=== PATIENT | male | born 1935 | race Caucasian/White ===

== ENCOUNTER 2019-11-28 08:24 | Emergency (ER) | payer MEDICARE ==
[~2019-11-28] VITALS: Ht 182.9 cm; Wt 94.8 kg
[2019-11-28] MEDS ORDERED: PLAVIX 75 MG TA75 MG PO (08:26)
[2019-11-28] MEDS ORDERED: ARICEPT10 M1 PO (08:26)
[2019-11-28] MEDS ORDERED: PROSCAR 5MG TABL5 M1 PO (08:26)
[2019-11-28] MEDS ORDERED: ASA81BEC PO (08:26)
[2019-11-28] MEDS ORDERED: LORAZEPAM 0.50.5 MG PO (08:27)
[2019-11-28] MEDS ORDERED: LEVEMIR FL100 UNIT/2 SUBQ (08:27)
[2019-11-28] MEDS ORDERED: FISH OIL 1,0001 EAC9 PO (08:27)
[2019-11-28] MEDS ORDERED: SEROQUEL 25 MG25 MG PO (08:28)
[2019-11-28] MEDS ORDERED: MULTI-VITAMIN1 EAC5 PO (08:28)
[2019-11-28] MEDS ORDERED: HYTRIN 1 MG CAP1 MG PO (08:28)
[2019-11-28 08:43] LABS: ABSOLUTE BASOPHILS 0.1 thou/uL (0.0-0.2); ABSOLUTE EOSINOPHILS 0.3 thou/uL (0.0-0.7); ABSOLUTE LYMPHOCYTES 2.3 thou/uL (0.8-5.3); ABSOLUTE MONOCYTES 1.1 thou/uL (0.0-1.2); ABSOLUTE NEUTROPHILS 4.4 thou/uL (1.6-8.1); BASOPHILS 1.2 %; EOSINOPHILS 3.5 %; HEMATOCRIT 39.1 % (42.0-52.0); HEMOGLOBIN 13.6 gm/dL (14.0-18.0); LYMPHOCYTES 27.9 %; MCH 35.7 pg (26.0-34.0); MCHC 34.9 g/dL (28.0-37.0); MCV 102.4 fL (80.0-100.0); MONOCYTES 13.5 %; MPV 9.1 fl. (7.2-11.1); NUCLEATED RBCS 0 /100WBC; PLATELET COUNT* 240 thou/uL (150-400); POLYS 53.9 %; RBC 3.82 mil/uL (4.50-6.00); RDW-CV 14.9 % (10.5-14.5); WBC 8.1 thou/uL (4.0-11.0)
[2019-11-28 08:51] LABS: CALCIUM 8.8 mg/dL (8.5-10.1); CREATININE 1.2 mg/dL (0.6-1.3); POTASSIUM 4.2 mmol/L (3.5-5.1)
[2019-11-28 08:53] LABS: APTT 27.6 Seconds (25.0-31.3); PROTIME 10.8 Seconds (9.20-11.50)
[2019-11-28 08:57] LABS: ALBUMIN 3.6 g/dL (3.4-5.0); TOTAL PROTEIN 6.8 g/dL (6.4-8.2)
[2019-11-28 10:50] VITALS: BP 142/71
--- NOTE | 2019-11-28 13:22 | EKG ---
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1935 Requested By: Gaurang Duong Order Number: [id number] MD: Bethel Ramirez Measurements Intervals [place] Rate: 50 P: 44 TN: 191 QRS: -28 QRSD: 149 T: 19 QT: 529 QTc: 483 Interpretive Statements Sinus rhythm Atrial premature complex Right bundle branch block Probable LVH with secondary repol abnrm Borderline prolonged QT interval No previous ECG available for comparison Electronically Signed On 11-28-2019 13:22:04 CDT by Bethel Ramirez [email or web address] <ELECTRONICALLY SIGNED> By: Bethel Ramirez MD, [facility] 11/28/19 1322 0840 0840 Bethel Ramirez MD, [facility] /EPI
== END 2019-11-28 12:25 ==
LOC: M.ERS 08:24
PROVIDERS: Family Medicine
DX: S51.011A Laceration without foreign body of right elbow, initial encounter (principal); S00.81XA Abrasion of other part of head, initial encounter; I10 Essential (primary) hypertension; E11.9 Type 2 diabetes mellitus without complications; E78.5 Hyperlipidemia, unspecified; Z79.4 Long term (current) use of insulin; W18.39XA Other fall on same level, initial encounter; Y93.89 Activity, other specified; Y92.128 Other place in nursing home as the place of occurrence of the external cause; Y99.8 Other external cause status

== ENCOUNTER 2020-05-01 12:28 | Inpatient (IN) | payer MEDICARE ==
[~2020-05-01] VITALS: Ht 175.3 cm; Wt 113.4 kg
[~2020-05-01 12:28] MED LIST: ARICEPT10 M1 PO; ASA81BEC PO; FISH OIL 1,0001 EAC9 PO; HYTRIN 1 MG CAP1 MG PO; LEVEMIR FL100 UNIT/2 SUBQ; LORAZEPAM 0.50.5 MG PO; MULTI-VITAMIN1 EAC5 PO; PLAVIX 75 MG TA75 MG PO; PROSCAR 5MG TABL5 M1 PO; SEROQUEL 25 MG25 MG PO
[2020-05-01 12:31] VITALS: BP 151/69
[2020-05-01 12:51] LABS: ABSOLUTE BASOPHILS 0.1 thou/uL (0.0-0.2); ABSOLUTE EOSINOPHILS 0.1 thou/uL (0.0-0.7); ABSOLUTE LYMPHOCYTES 1.4 thou/uL (0.8-5.3); ABSOLUTE MONOCYTES 1.3 thou/uL (0.0-1.2); ABSOLUTE NEUTROPHILS 7.7 thou/uL (1.6-8.1); EOSINOPHILS 0.7 %; HEMATOCRIT 37.6 % (42.0-52.0); HEMOGLOBIN 12.4 gm/dL (14.0-18.0); LYMPHOCYTES 13.4 %; MCH 33.7 pg (26.0-34.0); MCV 101.9 fL (80.0-100.0); MONOCYTES 12.5 %; MPV 9.4 fl. (7.2-11.1); NUCLEATED RBCS 0 /100WBC; PLATELET COUNT* 255 thou/uL (150-400); POLYS 72.4 %; RBC 3.69 mil/uL (4.50-6.00); WBC 10.7 thou/uL (4.0-11.0)
[2020-05-01 12:58] LABS: CALCIUM 8.9 mg/dL (8.5-10.1); CREATININE 1.2 mg/dL (0.6-1.3); POTASSIUM 3.8 mmol/L (3.5-5.1)
[2020-05-01 13:03] LABS: ALBUMIN 3.4 g/dL (3.4-5.0); TOTAL BILIRUBIN 1.2 mg/dL (<0.1-1.0); TOTAL PROTEIN 6.6 g/dL (6.4-8.2)
[2020-05-01 13:44] LABS: URINE BILIRUBIN NEGATIVE (Negative); URINE BLOOD NEGATIVE (Negative); URINE CLARITY CLEAR; URINE COLOR YELLOW; URINE GLUCOSE-RANDOM NEGATIVE (Negative); URINE KETONES NEGATIVE (Negative); URINE LEUKOCYTES-REFLEX NEGATIVE (Negative); URINE NITRITE-REFLEX NEGATIVE (Negative); URINE PROTEIN TRACE (Negative); URINE SPECIFIC GRAVITY >= 1.030 (1.005-1.030); URINE UROBILINOGEN 0.2 E.U./dl (0.2-1.0)
--- NOTE | 2020-05-01 15:13 | EKG ---
[place] [address] ELECTROCARDIOGRAM REPORT Name: BETHEL WILLIAM Room: [place] [address] ADM IN ..#: [id number] Admission: 05/01/20 Attend Phys: Ghazal Maier, Discharge: Date of : 35 Date of Service: 05/01/20 1308 Report #: [id number] THIS REPORT FOR: //name// [facility] ED Test Date: 2020-05-01 Test Time: 13:08:54 Pat Name: BETHEL WILLIAM Department: Room: [facility] Gender: M Records Administrator: [place] : 1935 Requested By: Robb Mejias Order Number: [id number] MD: See Hollis Measurements Intervals [place] Rate: 68 P: -40 [place]: 183 QRS: -27 QRSD: 136 T: 118 QT: 422 QTc: 449 Interpretive Statements Sinus rhythm Right bundle branch block LVH with IVCD and secondary repol abnrm Compared to ECG 11/28/2019 08:40:58 Atrial premature complex(es) no longer present Electronically Signed On 05-01-2020 15:13:29 QUALITY ASSURANCE PROJECT MANAGER by See Hollis [email or web address] <ELECTRONICALLY SIGNED> By: See Hollis MD, FACC 05/01/20 1513 1308 1308 See Hollis MD, FAC /EPI
--- NOTE | 2020-05-01 17:02 | 2DMMODE ---
[place] [address] 2 D/M-MODE ECHOCARDIOGRAM Name: BETHEL WILLIAM Room: [facility] ADM IN .R.#: [id number] Admission: 05/01/20 Attend Phys: Ghazal Maier, Discharge: Date of : 35 Date of Service: 05/01/201701 Report #: [id number] THIS REPORT FOR: cc: Fuad Hill MD, Srinath MD [place],Jeremiah Kilpatrick MD [facility] ~ APPROVED REPORT Study performed: 05/01/2020 16:01:57 EXAM: Comprehensive 2D, Doppler, and color-flow Echocardiogram Patient Location: In-Patient Room #: ER BSA: 2.27 HR: 77 bpm BP: 151/69 mmHg Rhythm: NSR Other Information Study Quality: Good Indications Elevated Troponin 2D Dimensions IVSd: 11.82 (7-11mm) LVOT Diam: 18.69 (18-24mm) LVDd: 49.29 mm PWd: 11.06 (7-11mm) Ascending Ao: 33.58 (22-36mm) LVDs: 38.77 (25-40mm) Aortic Root: 32.70 mm Volumes Left Atrial Volume (Systole) LA ESV Index: 27.10 mL/m2 Aortic Valve AoV Peak Eladio.: 3.29 m/s AO Peak Gr.: 43.35 mmHg LVOT Max P.36 mmHg AO Mean Gr.: 25.24 mmHg LVOT Mean P.65 mmHg LVOT Max V: 0.92 m/s AO V2 VTI: 61.30 cm LVOT Mean V: 0.59 m/s [place] (VTI): 0.91 cm2 LVOT V1 VTI: 20.32 [place] [address] 2 D/M-MODE ECHOCARDIOGRAM Name: BETHEL WILLIAM Room: [address] IN M.R.#: [id number] Admission: 05/01/20 Attend Phys: Ghazal Maier, Discharge: Date of : 35 Date of Service: 05/01/20 1702 Report #: [id number] Mitral Valve E/A Ratio: 1.78 MV Decel. Time: 252.78 ms MV E Max Eladio.: 0.91 m/s MV PHT: 73.31 ms MVA (PHT): 3.00 cm2 TDI E/Lateral E': 9.10 E/Medial E': 11.38 Medial E' Eladio.: 0.08 m/s Lateral E' Eladio.: 0.10 m/s Pulmonary Valve PV Peak Eladio.: 1.11 m/s PV Peak Gr.: 4.95 mmHg Tricuspid Valve RAP Estimate: 5.00 mmHg TR Peak Gr.: 32.53 mmHg RVSP: 37.00 mmHg PA Pressure: 37.00 mmHg Left Ventricle The left ventricle is normal size. There is normal LV segmental wall motion. There is normal left ventricular wall thickness. Left ventricular systolic function is normal.e. LVEF is 50-55%. Grade II - pseudonormal filling dynamics. Right Ventricle The right ventricle is normal size. The right ventricular systolic function is normal. Atria Left atrium is mildly dilated. The right atrium size is normal. Aortic Valve The Aortic valve is sclerotic. Mild aortic regurgitation. Severe aortic stenosis. Mitral Valve The mitral valve is normal in structure. Mild mitral regurgitation. No evidence of mitral valve stenosis. Tricuspid Valve The tricuspid valve is normal in structure. Mild tricuspid regurgitation. [place] [address] 2 D/M-MODE ECHOCARDIOGRAM Name: BETHEL WILLIAM Room: [address] IN [facility]#: [id number] Admission: 05/01/20 Attend Phys: Ghazal Maier, Discharge: Date of : 35 Date of Service: 05/01/20 1702 Report #: [id number] Pulmonic Valve The pulmonary valve is normal in structure. Mild pulmonic regurgitation. Great Vessels The aortic root is normal in size. IVC is normal in size and collapses >50% with inspiration. Pericardium There is no pericardial effusion. <Conclusion> The left ventricle is normal size. There is normal left ventricular wall thickness. Left ventricular systolic function is normal.e. LVEF is 50-55%. Grade II - pseudonormal filling dynamics. Left atrium is mildly dilated. The Aortic valve is sclerotic. Mild aortic regurgitation. Severe aortic stenosis. Mild mitral regurgitation. Mild tricuspid regurgitation. Mild pulmonary hypertension. IVC is normal in size and collapses >50% with inspiration. <ELECTRONICALLY SIGNED> By: Jeremiah Mcbride MD, FACC 05/01/201701 01 01 Jeremiah Mcbride MD, FACC /INF
[2020-05-01 19:00] VITALS: BP 135/69
[2020-05-01 20:00] VITALS: BP 106/61
[2020-05-01 20:05] VITALS: BP 135/69
[2020-05-02] VITALS: BP 130/65
[2020-05-02 04:54] VITALS: BP 146/67
[2020-05-02 05:43] LABS: HEMATOCRIT 36.2 % (42.0-52.0); MCH 33.7 pg (26.0-34.0); MCHC 33.1 g/dL (28.0-37.0); MPV 10.2 fl. (7.2-11.1); RBC 3.55 mil/uL (4.50-6.00); RDW-CV 14.9 % (10.5-14.5); WBC 9.5 thou/uL (4.0-11.0)
[2020-05-02 06:11] LABS: CALCIUM 8.7 mg/dL (8.5-10.1); CREATININE 1.2 mg/dL (0.6-1.3); MAGNESIUM 2.3 mg/dL (1.8-2.4); POTASSIUM 4.1 mmol/L (3.5-5.1); TOTAL BILIRUBIN 0.9 mg/dL (<0.1-1.0); TOTAL PROTEIN 6.4 g/dL (6.4-8.2)
[2020-05-02 08:00] VITALS: BP 141/62
[2020-05-02] MEDS ORDERED: PREDNISONE 10 M10 M1 PO (09:14)
[2020-05-02] MEDS ORDERED: LORAZEPAM 0.50.5 MG PO (09:14)
--- NOTE | 2020-05-03 13:09 | CON ---
[address] [address] CONSULTATION Name: BETHEL WILLIAM Room: [address] IN M.R.#: [id number] Admission: 05/01/20 Attend Phys: Ghazal Maier MD Discharge: 05/02/20 Date of : 35 Report #: [id number] THIS REPORT FOR: cc: Fuad Hill MD, Srinath MD ~ See Hollis MD [facility] DATE OF SERVICE: 05/02/2020 CARDIOLOGY CONSULTATION HISTORY OF PRESENT ILLNESS: The patient is an 85-year-old white male who I was asked to see in the hospital today after he was noted to have an elevated troponin. The history is obtained from the current chart. He lives in a long-term care facility. He has become confused on top of his normal dementia. He was brought to the hospital after he tested positive for COVID-19. He was noted to have an elevated troponin. Cardiology consultation requested. At the current time, the patient is nonverbal. He is awake. PAST MEDICAL HISTORY: Apparently, he has had multiple falls and contusions. MEDICATIONS: At the long term include aspirin, Plavix, Aricept, Proscar, insulin, Seroquel, Hytrin. ALLERGIES: He has no known drug allergies. SOCIAL HISTORY: No history of smoking. REVIEW OF SYSTEMS: Cannot be obtained. PHYSICAL EXAMINATION: GENERAL: Revealed an elderly male, lying in bed. He was unresponsive. VITAL SIGNS: He had a blood pressure of 140/70, pulse 60. He was afebrile. HEENT: He was anicteric. Conjunctivae are pink. Mucous membranes appear dry. CHEST: Coarse breath sounds bilaterally. CARDIOVASCULAR: Regular rate and rhythm without murmur. ABDOMEN: Soft. EXTREMITIES: Had no edema. SKIN: Cool and dry. NEUROLOGIC: Nonfocal. He would not follow commands. DIAGNOSTIC DATA: ECG showed a sinus rhythm with an incomplete right bundle-branch block. His echocardiogram done yesterday showed ejection fraction of 55%, left atrial enlargement, aortic sclerosis. There was evidence of significant aortic stenosis with a peak gradient across the aortic valve of [address] [place] [address] CONSULTATION Name: BETHEL WILLIAM Room: [address] IN [facility]#: [id number] Admission: 05/01/20 Attend Phys: Ghazal Maier MD Discharge: 05/02/20 Date of : 35 Report #: [id number]. His chest x-ray showed normal heart size. There is evidence of previous sternotomy. Atelectasis was noted. He actually had a CT scan of the head done last November after a fall that showed chronic changes, no acute abnormality. LABORATORY DATA: Sodium 141, BUN 24, creatinine 1.2. His troponin mildly elevated at 0.13. White blood cell count 9.5, hemoglobin 12.0. IMPRESSION AND RECOMMENDATIONS: 1. Borderline troponin. No history of angina. No acute ECG changes. Normal left ventricular function by echocardiography. Recommend no further cardiac evaluation. I find no evidence of acute myocardial infarction. 2. COVID-19. 3. Severe aortic stenosis. The patient is not an operative candidate. 4. Severe dementia. 5. History of multiple falls. <ELECTRONICALLY SIGNED> By: See Hollis MD, FACC 05/03/20 1309 0859 [id number] Saturnino Hollis MD, FACC /nt
== END 2020-05-02 18:15 | DRG 177 ==
LOC: M.ERS 12:28 → M.ORTHSURG 13:29 → M.TBA-ER 13:29 → M.ORTHSURG 20:10
PROVIDERS: Emergency Medicine Emergency Medical Services; ADMIT Internal Medicine; ATTEND Internal Medicine
DX: U07.1 COVID-19 (principal); G93.41 Metabolic encephalopathy; F03.90 Unspecified dementia, unspecified severity, without behavioral disturbance, psychotic disturbance, mood disturbance, and anxiety; E11.9 Type 2 diabetes mellitus without complications; I10 Essential (primary) hypertension; E78.5 Hyperlipidemia, unspecified; I35.0 Nonrheumatic aortic (valve) stenosis; Z79.82 Long term (current) use of aspirin; Z79.899 Other long term (current) drug therapy

== ENCOUNTER 2020-05-04 21:45 | Inpatient (IN) | payer MEDICARE ==
[~2020-05-04] VITALS: Ht 180.3 cm; Wt 93.2 kg
[~2020-05-04 21:45] MED LIST changes: +PREDNISONE 10 M10 M1 PO
[2020-05-04 21:51] VITALS: BP 133/71
[2020-05-04] MEDS ORDERED: AZITHROMYCIN500 MG PO (21:53)
[2020-05-04] MEDS ORDERED: CLOPIDOGREL75 MG PO (21:53)
[2020-05-04] MEDS ORDERED: ARICEPT10 M1 PO (21:53)
[2020-05-04] MEDS ORDERED: PROSCAR 5MG TABL5 M1 PO (21:55)
[2020-05-04] MEDS ORDERED: VITAMIN C500 M1 PO (21:56)
[2020-05-04 22:22] LABS: HEMOGLOBIN 13.4 gm/dL (14.0-18.0); MCH 33.6 pg (26.0-34.0); MCHC 32.7 g/dL (28.0-37.0); MCV 102.6 fL (80.0-100.0); MPV 10.4 fl. (7.2-11.1); NUCLEATED RBCS 0 /100WBC; PLATELET COUNT* 217 thou/uL (150-400); RBC 3.99 mil/uL (4.50-6.00); RDW-CV 15.2 % (10.5-14.5); WBC 17.5 thou/uL (4.0-11.0)
[2020-05-04 22:30] LABS: BE -3.6 mmol/L (-2 to +3); PCO2 26.1 mmHg (35.0-45.0); PO2 66.6 mmHg (75.0-100.0); pH 7.469 (7.340-7.450)
[2020-05-04 22:32] LABS: CALCIUM 9.2 mg/dL (8.5-10.1); CREATININE 1.7 mg/dL (0.6-1.3); POTASSIUM 3.3 mmol/L (3.5-5.1)
[2020-05-04 22:36] LABS: ALBUMIN 2.8 g/dL (3.4-5.0); MAGNESIUM 2.7 mg/dL (1.8-2.4); TOTAL BILIRUBIN 1.6 mg/dL (<0.1-1.0); TOTAL PROTEIN 6.8 g/dL (6.4-8.2)
[2020-05-04 22:56] LABS: ABSOLUTE LYMPHOCYTES 0.9 thou/uL (0.8-5.3); ABSOLUTE MONOCYTES 0.9 thou/uL (0.0-1.2); ABSOLUTE NEUTROPHILS 15.8 thou/uL (1.6-8.1); ATYPICAL LYMPHS 1 %; PLATELET ESTIMATE ADEQUATE
[2020-05-04 22:57] LABS: TOXIC GRANULATION 1+
[2020-05-04 23:33] LABS: URINE BILIRUBIN NEGATIVE (Negative); URINE BLOOD 2+ (Negative); URINE COLOR DARK YELLOW; URINE GLUCOSE-RANDOM NEGATIVE (Negative); URINE KETONES 1+ (Negative); URINE LEUKOCYTES-REFLEX NEGATIVE (Negative); URINE NITRITE-REFLEX NEGATIVE (Negative); URINE PROTEIN 2+ (Negative); URINE SPECIFIC GRAVITY >= 1.030 (1.005-1.030); URINE UROBILINOGEN 0.2 E.U./dl (0.2-1.0)
[2020-05-04 23:34] LABS: URINE CLARITY SL HAZY
[2020-05-04 23:40] LABS: SQUAMOUS 0-3 Few /LPF (0-3); WBC CLUMPS Few (None Seen)
[2020-05-04 23:41] LABS: AMORPHOUS URATES Many /LPF (None Seen); BACTERIA-REFLEX >30 Many /HPF (None Seen); CELLULAR CASTS 0-3 Few /LPF (None Seen); COARSE GRANULAR CASTS 0-3 Few /LPF (None Seen); FINE GRANULAR CASTS 0-3 Few /LPF (None Seen); MUCUS >6 Heavy strn/LPF (None Seen)
[2020-05-05 02:19] VITALS: BP 118/59
[2020-05-05 05:42] VITALS: BP 113/63
--- NOTE | 2020-05-05 05:48 | NUR ---
ASSUMED CARE AT 0230. PT RESTING COMFORTABLY ON BIPAP. Q2 TURN, FLUIDS AT 100 NS. NORMAL SINUS RHYTHM ON MONITOR. REDNESS ON BOTTOM, PIC IN CHART. ALERT TO SELF, DEMENTIA, CONFUSION. PT FAMILY MEMBER CALLED TO LET ME KNOW HE TENDS TO WANDER AROUND AND GETS UP OFTEN. WILL ALERT DAY SHIFT STAFF.
[2020-05-05 07:45] VITALS: BP 137/70
--- NOTE | 2020-05-05 11:30 | NUR ---
PT.KNOWN FROM PREVIOUS RECENT ADMISSION. PT.LIVES IN THE MEMORY CARE UNIT AT THE [facility]. LEFT ON ROOM AIR TUESDAY WITH STABLE SATURATIONS. NOW ON BIPAP. FAMILY AWARE HE IS BACK IN THE HOSPITAL. NIECE CALLED AND SAID HE LIKES TO WANDER THE [place]ALLWAYS AT THE [facility]. NO USE OF DME,NORMALLY. DPOA IS LAILA GONZALEZ.
[2020-05-05 11:57] VITALS: BP 144/85
--- NOTE | 2020-05-05 15:12 | EKG ---
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 /EPI
[2020-05-05 15:40] LABS: CALCIUM 8.2 mg/dL (8.5-10.1); CREATININE 1.7 mg/dL (0.6-1.3); MAGNESIUM 2.4 mg/dL (1.8-2.4); POTASSIUM 3.5 mmol/L (3.5-5.1)
[2020-05-05 16:00] VITALS: BP 128/68
--- NOTE | 2020-05-05 19:06 | NUR ---
PT RESTING IN BED. CALL LIGHT IN REACH. FALL PRECAUTIONS IN PLACE. PT VISITED BY FATHER PEDRITO THIS AM. REA PATENT, YELLOW URINE VISIBLE IN COLLECTION BAG. PT NPO R/T BIPAP AND INTERMITTENT DIFFICULTY SWALLOWING.PT REMAINED ON BIPAP. IV TO LFA PATENT, CARDIZEM INFUSING ORDERED. IV TO L HAND PATENT, AMIODARONE RUNNING DIRECTED. HEARTRATE WITHIN PARAMETERS AT THIS TIME PT REPOSITIONED FOR SKIN INTEGRITY.
[2020-05-05 20:30] VITALS: BP 117/65
[2020-05-06] VITALS (7 sets, daily range): BP systolic 110–147; BP diastolic 53–86
--- NOTE | 2020-05-06 04:35 | NUR ---
PT SLEPT MOST OF SHIFT. ASSESSMENT DOCUMENTED. MEDS GIVEN PER E-MAR. IV'S PATENT. AMIODARONE AND CARDIZEM RUNNING. NEW IV STARTED. MEDS TAKEN CRUSHED IN APPLESAUCE. BIPAP WORN THIS SHIFT. FALL PRECAUTIONS IN PLACE. PT TOLERATING REPOSITIONS.
--- NOTE | 2020-05-06 07:10 | NUR ---
CHANGE OF SHIFT BEDSIDE REPORT GIVEN PATIENT SEEN AT BEDSIDE IN BED ASLEEP ASSUMED PATIENT CARE
[2020-05-06 13:53] LABS: ABSOLUTE BASOPHILS 0.1 thou/uL (0.0-0.2); ABSOLUTE LYMPHOCYTES 0.3 thou/uL (0.8-5.3); ABSOLUTE MONOCYTES 0.5 thou/uL (0.0-1.2); ABSOLUTE NEUTROPHILS 12.8 thou/uL (1.6-8.1); BASOPHILS 0.4 %; HEMATOCRIT 40.9 % (42.0-52.0); HEMOGLOBIN 13.2 gm/dL (14.0-18.0); LYMPHOCYTES 2.2 %; MCH 33.3 pg (26.0-34.0); MCHC 32.2 g/dL (28.0-37.0); MCV 103.3 fL (80.0-100.0); MONOCYTES 3.8 %; MPV 10.9 fl. (7.2-11.1); NUCLEATED RBCS 0 /100WBC; PLATELET COUNT* 209 thou/uL (150-400); POLYS 93.6 %; RBC 3.96 mil/uL (4.50-6.00); WBC 13.7 thou/uL (4.0-11.0)
[2020-05-06 14:17] LABS: ALBUMIN 2.5 g/dL (3.4-5.0); CALCIUM 8.9 mg/dL (8.5-10.1); CREATININE 2.1 mg/dL (0.6-1.3); POTASSIUM 3.6 mmol/L (3.5-5.1); TOTAL BILIRUBIN 1.2 mg/dL (<0.1-1.0); TOTAL PROTEIN 5.6 g/dL (6.4-8.2)
--- NOTE | 2020-05-06 16:00 | NUR ---
PT.ON BIPAP CONTINUOUSLY. ON SECOND DAY OF IVREMDESIVIR. AMIODARONE DISCONTINUED DUE TO RISE IN LIVER ENZYMES.
--- NOTE | 2020-05-06 16:08 | EKG ---
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 Management Engineer: BREN[place] : 1935 Requested By: Memo Esposito Order Number: [id number] Reading MD: Bethel Ramirez Measurements Intervals [place] Rate: 150 P: 210 [place]: 69 QRS: -34 QRSD: 126 T: 68 QT: 313 QTc: 495 Interpretive Statements Atrial fibrillation with a rapid ventricular response Right bundle branch block Baseline wander in lead(s) V3 Compared to ECG 05/04/2020 21:50:00 Atrial fibrillation persists with a more rapid rate Electronically Signed On 05-06-2020 16:08:40 DRAFTER ELECTRICAL by Bethel Ramirez [email or web address] <ELECTRONICALLY SIGNED> By: Bethel Ramirez MD, FAC 05/06/20 1608 1345 1345 Bethel Ramirez MD, FAC /EPI
[2020-05-07 04:02] VITALS: BP 146/75
--- NOTE | 2020-05-07 04:53 | NUR ---
PT SLEPT VERY LITTLE THIS SHIFT. ASSESSMENT DOCUMENTED. MEDS GIVEN PER E-JUN. IV'S PATENT. PT REPOSITIONED THROUGH SHIFT. REA IN PLACE. BIPAP WORN ALL NIGHT. ISOLATION MAINTAINED. FALL PRECAUTIONS IN PLACE.
[2020-05-07 05:19] LABS: ABSOLUTE LYMPHOCYTES 0.3 thou/uL (0.8-5.3); ABSOLUTE MONOCYTES 0.3 thou/uL (0.0-1.2); ABSOLUTE NEUTROPHILS 8.8 thou/uL (1.6-8.1); BASOPHILS 0.1 %; HEMATOCRIT 39.9 % (42.0-52.0); HEMOGLOBIN 13.1 gm/dL (14.0-18.0); LYMPHOCYTES 3.5 %; MCH 33.3 pg (26.0-34.0); MCHC 32.7 g/dL (28.0-37.0); MCV 101.9 fL (80.0-100.0); MONOCYTES 3.5 %; MPV 10.9 fl. (7.2-11.1); NUCLEATED RBCS 0 /100WBC; PLATELET COUNT* 202 thou/uL (150-400); POLYS 92.9 %; RBC 3.92 mil/uL (4.50-6.00); WBC 9.5 thou/uL (4.0-11.0)
[2020-05-07 05:33] LABS: ALBUMIN 2.2 g/dL (3.4-5.0); CALCIUM 8.5 mg/dL (8.5-10.1); CREATININE 2.3 mg/dL (0.6-1.3); MAGNESIUM 2.9 mg/dL (1.8-2.4); POTASSIUM 3.6 mmol/L (3.5-5.1)
[2020-05-07 08:50] VITALS: BP 127/78
[2020-05-07 08:53] LABS: BE -5.2 mmol/L (-2 to +3); PCO2 29.1 mmHg (35.0-45.0); PO2 68.1 mmHg (75.0-100.0); pH 7.404 (7.340-7.450)
[2020-05-07 10:30] LABS: CALCIUM 8.8 mg/dL (8.5-10.1); CREATININE 2.3 mg/dL (0.6-1.3); POTASSIUM 3.3 mmol/L (3.5-5.1)
[2020-05-07 12:11] VITALS: BP 104/63
[2020-05-07 15:13] LABS: CALCIUM 9.1 mg/dL (8.5-10.1); CREATININE 2.3 mg/dL (0.6-1.3)
--- NOTE | 2020-05-07 15:34 | EKG ---
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 Sander: : 1935 Requested By: Jaky Armenta Order Number: [id number] Juana MD: Bethel Ramirez Measurements Intervals [place] Rate: 89 P: [place]: QRS: -34 QRSD: 136 T: 61 QT: 443 QTc: 540 Interpretive Statements Atrial fibrillation Right bundle branch block Compared to ECG 05/05/2020 13:45:12 Ventricular response atrial fibrillation has slowed Electronically Signed On 05-07-2020 15:34:24 POWDER LOADER by Bethel Ramirez [email or web address] <ELECTRONICALLY SIGNED> By: Bethel Ramirez MD, [facility] 05/07/20 1534 1255 1255 Bethel Ramirez MD, [facility] /EPI
[2020-05-07 16:47] VITALS: BP 108/78
--- NOTE | 2020-05-07 16:52 | NUR ---
ASSUMED CARE OF PT AT 0730. PT ON BEDREST WITH FALL PRECAUTIONS IN PLACE AND CALL LIGHT IN REACH.REMAINS ON BIPAP AT 50% WITH O2 MAINTAINING IN THE LOW 90'S. WHEEZES NOTED IN R LUNG, CXR DONE AN RESULTS SHOWS SOME IMPROVEMENT IN R BASILAR INFILTRATE AND L LUNG STABLE. MRSA IS NEGATIVE. RENAL ULTRASOUND ORDERED AMD COMPLETED TODAY. COCCYX REDDENED AND MOISTURE BARRIER APPLED AFTER EACH EPISODE OF INCONTINENCE. MEDICAATIONS CRUSHED AND ADMINISTERED ORDERED.ASSESSMENT COMPLETED AND WILL CONTINUE CURRENT PLAN OF CARE.
--- NOTE | 2020-05-07 17:00 | NUR ---
PT.REMAINS ON CONT.BIPAP-FI02 OF 50%. NA AND CREAT.UP. BEING ADDRESSED BY DR. KLINE CONSULTED YESTERDAY. REMSESIVIR DC'D DUE TO HIGH CREAT. NURSING HAS UPDATED NIECE TODAY.
--- NOTE | 2020-05-07 17:03 | NUR ---
ADDENDUM TO PREVIOUS NOTE. THIS SUPERINTENDENT MAINTENANCE [employer] SPOKE WITH THE PT'S NIECE, NUVIA (AUTHORIZED CONTACT) AND UPDATED ON NEW ORDERS AND STATUS.
[2020-05-07 20:00] VITALS: BP 139/69
[2020-05-08] VITALS (7 sets, daily range): BP systolic 103–158; BP diastolic 59–88
[2020-05-08 05:42] LABS: HEMATOCRIT 40.7 % (42.0-52.0); HEMOGLOBIN 13.2 gm/dL (14.0-18.0); MCH 33.6 pg (26.0-34.0); MCHC 32.5 g/dL (28.0-37.0); MCV 103.3 fL (80.0-100.0); MPV 10.8 fl. (7.2-11.1); NUCLEATED RBCS 0 /100WBC; PLATELET COUNT* 206 thou/uL (150-400); RBC 3.94 mil/uL (4.50-6.00); RDW-CV 16.3 % (10.5-14.5); WBC 10.3 thou/uL (4.0-11.0)
[2020-05-08 06:00] LABS: ALBUMIN 2.2 g/dL (3.4-5.0); CALCIUM 9.7 mg/dL (8.5-10.1); CREATININE 2.1 mg/dL (0.6-1.3); POTASSIUM 3.1 mmol/L (3.5-5.1); TOTAL BILIRUBIN 0.6 mg/dL (<0.1-1.0); TOTAL PROTEIN 5.9 g/dL (6.4-8.2)
[2020-05-08 06:24] LABS: ABSOLUTE LYMPHOCYTES 0.5 thou/uL (0.8-5.3); ABSOLUTE MONOCYTES 0.1 thou/uL (0.0-1.2); ABSOLUTE NEUTROPHILS 9.7 thou/uL (1.6-8.1); ATYPICAL LYMPHS 2 %; PLATELET ESTIMATE ADEQUATE
--- NOTE | 2020-05-08 06:41 | NUR ---
PT SLEPT ON AND OFF THIS SHIFT. ASSESSMENT DOCUMENTED. MEDS GIVEN PER E-JUN. IV'S PATENT, FLUIDS INFUSING. NO APPARENT PAIN THIS SHIFT. PT PULLING AT BIPAP AND PULLING OFF LEADS THIS SHIFT. PT REMAINED ON BIPAP. ISOLATION MAINTAINED.
[2020-05-08 10:09] LABS: CREATININE 1.8 mg/dL (0.6-1.3)
[2020-05-08 10:12] LABS: POTASSIUM 2.9 mmol/L (3.5-5.1)
--- NOTE | 2020-05-08 19:45 | NUR ---
ORDERS RECEIVED FOR LASIX AND ALBUMIN PER DR ESCOBAR. AWAITING ALBUMIN FROM PHARMACY. REPORT GIVEN TO ONCOMING SHIFT AND WILL FOLLOW THROUGH WITH ORDER.
--- NOTE | 2020-05-08 19:47 | NUR ---
ASSUMED PT CARE AT 0730. ASSESSMENT COMPLETED, PT CONTINUES ON BIPAP AT 50% WHICH RT TITRATED TO 70% THIS AFTERENOON.PT CONTINUES TO BE FIDGETY AND REMOVE BIPAP, ATTEMPT TO REMOVE REA,AND IV'S. ATTEMPTING TO HIT STAFF AT TIMES. PT ENCOURAGED AND COMFORT MEASURES GIVEN TO PROMOTE A CALM ENVIRONMENT.CRITICAL POTASSIUM OF 2.9 NOTED TODAY, IV POTASSIUM GIVEN PER ELECTROLYTE PROTOCOL AND REDRAWS SCHEDULED FOR 1999. IV ATIVAN REQUIRED TO DECREASE RESTLESSNESS. FALL PRECAUTIONS IN PLACE, CALL LIGHT IN REACH. PT TURNED AND REPOSITIONED Q2H.MOISTURE BARRIER APPLIED AFTER EACH EPISODE OF INCONTINENCE. SPOKE WITH PT'S NIECE (GIANNI CHAVEZ TO UPDATE ON CURRENT STATUS AND PLAN OF CARE.
[2020-05-09] VITALS (23 sets, daily range): BP systolic 113–181; BP diastolic 56–121
--- NOTE | 2020-05-09 04:37 | NUR ---
PT ALERT TO SELF, Q2 TURN. PULLS AT BIPAP HOSES, AEROSPACE MEDICINE PHYSICIAN LEADS ETC. ATIVAN HELPFUL FOR ANXIETY. REA IN PLACE, MAX ASSIST. SOME REDNESS ON BOTTOM, BARRIER CREAM APPLIED, Q2 TURN. ACHS Q4. MONITORING LABS FOR K+ LEVELS THIS AM. RECEIVED MEDS SCHEDULED. DOES WELL WITH THEM CRUSHED IN THICKENED JUICE. MONITOR LABS AND O2. WILL CONTINUE TO MONITOR.
[2020-05-09 05:48] LABS: HEMATOCRIT 40.2 % (42.0-52.0); HEMOGLOBIN 12.9 gm/dL (14.0-18.0); MCH 32.8 pg (26.0-34.0); MCV 102.5 fL (80.0-100.0); RBC 3.92 mil/uL (4.50-6.00); RDW-CV 16.2 % (10.5-14.5); WBC 13.3 thou/uL (4.0-11.0)
[2020-05-09 06:39] LABS: ALBUMIN 2.3 g/dL (3.4-5.0); CALCIUM 9.3 mg/dL (8.5-10.1); CREATININE 1.7 mg/dL (0.6-1.3); MAGNESIUM 2.7 mg/dL (1.8-2.4); POTASSIUM 4.8 mmol/L (3.5-5.1); TOTAL BILIRUBIN 0.8 mg/dL (<0.1-1.0); TOTAL PROTEIN 5.9 g/dL (6.4-8.2)
[2020-05-09 15:10] LABS: CALCIUM 9.8 mg/dL (8.5-10.1); CREATININE 1.7 mg/dL (0.6-1.3); MAGNESIUM 2.8 mg/dL (1.8-2.4)
--- NOTE | 2020-05-09 15:58 | NUR ---
report called to nurse. family updated. pt transferred to icu.
[2020-05-10] VITALS (54 sets, daily range): BP systolic 94–190; BP diastolic 41–117
[2020-05-10 04:53] LABS: HEMATOCRIT 37.6 % (42.0-52.0); HEMOGLOBIN 12.4 gm/dL (14.0-18.0); MCH 33.4 pg (26.0-34.0); MCHC 32.9 g/dL (28.0-37.0); MCV 101.4 fL (80.0-100.0); MPV 11.1 fl. (7.2-11.1); RBC 3.71 mil/uL (4.50-6.00); RDW-CV 15.9 % (10.5-14.5); WBC 13.6 thou/uL (4.0-11.0)
[2020-05-10 05:10] LABS: ALBUMIN 2.1 g/dL (3.4-5.0); CALCIUM 8.7 mg/dL (8.5-10.1); CREATININE 1.4 mg/dL (0.6-1.3); MAGNESIUM 2.7 mg/dL (1.8-2.4); POTASSIUM 3.7 mmol/L (3.5-5.1); TOTAL BILIRUBIN 0.6 mg/dL (<0.1-1.0); TOTAL PROTEIN 5.5 g/dL (6.4-8.2)
[2020-05-11] VITALS (56 sets, daily range): BP systolic 115–180; BP diastolic 39–109
[2020-05-11 03:16] LABS: HEMATOCRIT 38.8 % (42.0-52.0); HEMOGLOBIN 12.7 gm/dL (14.0-18.0); MCH 33.1 pg (26.0-34.0); MCHC 32.8 g/dL (28.0-37.0); MPV 11.4 fl. (7.2-11.1); RBC 3.84 mil/uL (4.50-6.00); RDW-CV 16.1 % (10.5-14.5); WBC 15.5 thou/uL (4.0-11.0)
[2020-05-11 03:58] LABS: ALBUMIN 1.9 g/dL (3.4-5.0); CALCIUM 8.5 mg/dL (8.5-10.1); CREATININE 1.3 mg/dL (0.6-1.3); MAGNESIUM 2.5 mg/dL (1.8-2.4); POTASSIUM 3.9 mmol/L (3.5-5.1); TOTAL BILIRUBIN 0.8 mg/dL (<0.1-1.0); TOTAL PROTEIN 5.2 g/dL (6.4-8.2)
[2020-05-11 04:30] LABS: PO2 81.3 mmHg (75.0-100.0); pH 7.495 (7.340-7.450)
--- NOTE | 2020-05-11 18:44 | NUR ---
PATIENT CONTINUES TO BE ON AND OFF OF BIPAP WITH HIGH DOROTHY NASAL CANNULA AT 15L WHEN OFF BIPAP. CONTINUES TO BE CONFUSED WITH PERIODS OF AGITATION. PATIENT WILL SQUEEZE YOUR HAND OR ARMS HARD HE CAN WHEN HE AGITATED. HEART RATE WILL SPIKE TO THE 150'S-160'S. PRECEDEX IS ONGOING. PATIENT MADE DNR PER PHYSICIAN ORDER. NO FURTHER CONCERNS AT THIS TIME. WILL CONTINUE TO MONITOR AND CARE PER PLAN OF CARE.
[2020-05-12] VITALS (38 sets, daily range): BP systolic 137–185; BP diastolic 41–148
[2020-05-12 04:46] LABS: HEMOGLOBIN 12.6 gm/dL (14.0-18.0); MCHC 32.4 g/dL (28.0-37.0); MCV 101.9 fL (80.0-100.0); MPV 11.8 fl. (7.2-11.1); RBC 3.83 mil/uL (4.50-6.00); RDW-CV 15.7 % (10.5-14.5); WBC 17.4 thou/uL (4.0-11.0)
[2020-05-12 05:01] LABS: CALCIUM 8.2 mg/dL (8.5-10.1); CREATININE 1.2 mg/dL (0.6-1.3); MAGNESIUM 2.6 mg/dL (1.8-2.4); TOTAL BILIRUBIN 0.7 mg/dL (<0.1-1.0); TOTAL PROTEIN 5.5 g/dL (6.4-8.2)
[2020-05-12 05:48] LABS: BE -3.8 mmol/L (-2 to +3); PCO2 28.7 mmHg (35.0-45.0); PO2 92.4 mmHg (75.0-100.0); pH 7.431 (7.340-7.450)
--- NOTE | 2020-05-12 15:05 | NUR ---
ICU rounds: Pt improving. Pulm following. Possible tele status tomorrow.
--- NOTE | 2020-05-12 20:00 | NUR ---
RECEIVED REPORT EARLIER AND ASSUMED CARE OF PT. PT SEDATED BUT OPENS EYES TO LOUD VOICE. WILL NOT FOLLOW COMMANDS OR SQUEEZE HAND. HOB ELEVATED. O2 ON AT 15L/HFC. MOUTH CARE GIVEN DUE TO MOUTH BREATHER. PT REPOSITIONED IN BED WITH WEDGES. TRAN BUTTOCKS DISCOLORED AND OPEN AREAS NOTED. SALES EXHIBITOR ON SHOWING A-FIB. WILL CONT TO MONITOR AND REPOSITION.
[2020-05-13] VITALS (37 sets, daily range): BP systolic 74–206; BP diastolic 47–112
--- NOTE | 2020-05-13 | NUR ---
PT ON BIPAP AT 50%, MAINTAINING O2 SAT. PT CALM AND NOT PULLING AT MASK. REPOSITIONED ONTO RT SIDE. NO CHANGES NOTED.
--- NOTE | 2020-05-13 04:00 | NUR ---
CONT TO REST QUIETLY. REASSESSMENT OBTAINED AND NO CHANGES.
[2020-05-13 05:23] LABS: HEMATOCRIT 36.9 % (42.0-52.0); MCHC 32.6 g/dL (28.0-37.0); MCV 101.3 fL (80.0-100.0); MPV 12.7 fl. (7.2-11.1); NUCLEATED RBCS 0 /100WBC; PLATELET COUNT* 166 thou/uL (150-400); RBC 3.65 mil/uL (4.50-6.00); RDW-CV 15.6 % (10.5-14.5); WBC 19.2 thou/uL (4.0-11.0)
[2020-05-13 05:33] LABS: ALBUMIN 2.3 g/dL (3.4-5.0); CALCIUM 8.1 mg/dL (8.5-10.1); CREATININE 1.2 mg/dL (0.6-1.3); MAGNESIUM 2.7 mg/dL (1.8-2.4); POTASSIUM 3.9 mmol/L (3.5-5.1); TOTAL BILIRUBIN 0.9 mg/dL (<0.1-1.0); TOTAL PROTEIN 5.4 g/dL (6.4-8.2)
--- NOTE | 2020-05-13 06:48 | NUR ---
AWAKE OCC, NON VERBAL, VERY STRONG AND PULLING AT MASK, TUBINGS AND ANY THING WITHIN REACH. BIPAP OFF AND PLACED ON 15L/HFC. REPOSITIONED Q 2HR, BUTTOCKS REMAINS RED WITH OPEN AREAS. HS GOALS OF REST, SAFETY AND OXYGENATION OBTAINDED.
[2020-05-13 07:21] LABS: ABSOLUTE LYMPHOCYTES 1.5 thou/uL (0.8-5.3); ABSOLUTE NEUTROPHILS 17.7 thou/uL (1.6-8.1); METAMYELOCYTES 1 %
[2020-05-13 07:22] LABS: PLATELET ESTIMATE ADEQUATE
[2020-05-13 07:24] LABS: HYPOCHROMASIA 2+
--- NOTE | 2020-05-13 13:30 | NUR ---
ICU rounds: CM faxed clinical to [facility]. Pt on 15L HFNC. Taper precedex. Therapies to see
--- NOTE | 2020-05-13 16:40 | NUR ---
1555: DR. BOWMAN NOTIFIED OF OF AFIB 110-140S. ORDERS GIVEN AND IMPLEMENTED. SEE ORDERS.
[2020-05-14] VITALS (27 sets, daily range): BP systolic 92–160; BP diastolic 38–89
[2020-05-14 05:25] LABS: ABSOLUTE LYMPHOCYTES 0.9 thou/uL (0.8-5.3); ABSOLUTE MONOCYTES 1.7 thou/uL (0.0-1.2); ABSOLUTE NEUTROPHILS 28.2 thou/uL (1.6-8.1); HEMATOCRIT 42.6 % (42.0-52.0); HEMOGLOBIN 13.8 gm/dL (14.0-18.0); LYMPHOCYTES 2.9 %; MCH 32.8 pg (26.0-34.0); MCHC 32.4 g/dL (28.0-37.0); MCV 101.4 fL (80.0-100.0); MONOCYTES 5.5 %; MPV 12.4 fl. (7.2-11.1); NUCLEATED RBCS 0 /100WBC; POLYS 91.6 %; RDW-CV 15.8 % (10.5-14.5); WBC 30.8 thou/uL (4.0-11.0)
[2020-05-14 05:41] LABS: ALBUMIN 2.5 g/dL (3.4-5.0); CALCIUM 8.7 mg/dL (8.5-10.1); CREATININE 1.5 mg/dL (0.6-1.3); MAGNESIUM 2.9 mg/dL (1.8-2.4); PLATELET COUNT* 248 thou/uL (150-400); POTASSIUM 3.5 mmol/L (3.5-5.1); TOTAL BILIRUBIN 1.8 mg/dL (<0.1-1.0); TOTAL PROTEIN 6.1 g/dL (6.4-8.2)
[2020-05-14 10:10] LABS: URINE BILIRUBIN NEGATIVE (Negative); URINE BLOOD NEGATIVE (Negative); URINE CLARITY CLEAR; URINE COLOR YELLOW; URINE GLUCOSE-RANDOM NEGATIVE (Negative); URINE KETONES NEGATIVE (Negative); URINE LEUKOCYTES-REFLEX NEGATIVE (Negative); URINE NITRITE-REFLEX NEGATIVE (Negative); URINE PROTEIN NEGATIVE (Negative); URINE SPECIFIC GRAVITY 1.025 (1.005-1.030); URINE UROBILINOGEN 0.2 E.U./dl (0.2-1.0)
--- NOTE | 2020-05-14 13:50 | NUR ---
ICU rounds: Pt tele status, waiting for bed on covid unit.
--- NOTE | 2020-05-14 16:42 | NUR ---
1620: PT TRANSFERED TO COVID UNIT BED 106. CARE TRANSFERED TO COVID RN. REPORT GIVEN OVER THE PHONE PRIOR TO TRANSFER. PT STABLE AT TIME OF TRANSFER.
--- NOTE | 2020-05-14 18:57 | NUR ---
PT AWAKE/ALERT BUT REMAINS NON-VERBAL. PT ORIENTED TO PERSON. PT ARRIVED ON UNIT FROM ICU APPROX 1610 THIS AFTERNOON. PT PLACED ON 6L O2 BY NC UPON ARRIVAL. PT NPO PER SPEECH EVAL R/T DIFFICULTY SWALLOWING. ORAL CARE PERFORMED, PT BITES SWAB. SOME TRACE EDEMA OBSERVED IN HANDS/FEET. REA CATHETER PATENT, YELLOW URINE OBSERVED IN COLLECTION BAG. PT ACCFUCHECK, INSULIN ADMINISTERED PER SLIDING SCALE. DISCOLORATION NOTED TO BUTTOCKS/COCCYX, PT REPOSITIONED FOR SKIN INTEGRITY. TRIPLE LUMEN TO R SUBCLAVIAN, PATENT, DRESSING C/D/I. D5W RUNNING ORDERED. MIDLINE TO GRAYSON PATENT, DRESSING C/D/I SALINE LOCKED. PT RESTING IN ROOM WITH CALL LIGHT IN REACH.
--- NOTE | 2020-05-15 01:15 | NUR ---
PT ALERT TO SELF, NON-VERBAL, PT AFIB ON MONITOR, OXYGEN SAT 92-93% ON BIPAP AT 45% FOI2, AFEBRILE. AT APPROX 2214 DR. BUTLER CONTACTED REGARDING GLARGINE DOSAGE AND NOTIFIED OF PT D5W IV FLUIDS, BLOOD GLUCOSE LEVELS AND INSULIN GIVEN PAST 24 HR, AND PT NPO - DR. BUTLER GAVE OK TO GIVE 30 UNITS GLARGINE ORDERED. 30 UNITS GLARGINE GIVEN AT 2229. AT 2347 PT BLOOD GLUCOSE <30 ON GLUCOMETER. AT 2354 DEXTROSE 25GM IV GIVEN PER PROTOCOL. AT 0035 PT BLOOD GLUCOSE 126. PHYSICIAN NOTIFIED OF INTERVENTIONS AT 0106, ORDER GIVEN TO INCREASE D5W IV FLUIDS TO 60ML/HR.
[2020-05-15 04:00] VITALS: BP 174/80
[2020-05-15 05:48] LABS: HEMOGLOBIN 13.2 gm/dL (14.0-18.0); MCH 32.6 pg (26.0-34.0); MCHC 32.1 g/dL (28.0-37.0); MCV 101.5 fL (80.0-100.0); NUCLEATED RBCS 0 /100WBC; PLATELET COUNT* 210 thou/uL (150-400); RBC 4.05 mil/uL (4.50-6.00); WBC 23.5 thou/uL (4.0-11.0)
[2020-05-15 06:28] LABS: ABSOLUTE LYMPHOCYTES 1.6 thou/uL (0.8-5.3); ABSOLUTE MONOCYTES 1.6 thou/uL (0.0-1.2); ABSOLUTE NEUTROPHILS 20.2 thou/uL (1.6-8.1); ANISOCYTOSIS 1+; MYELOCYTES 1 %; PLATELET ESTIMATE ADEQUATE; POIKILOCYTOSIS 1+
[2020-05-15 06:37] LABS: ALBUMIN 2.2 g/dL (3.4-5.0); CALCIUM 7.9 mg/dL (8.5-10.1); CREATININE 1.7 mg/dL (0.6-1.3); MAGNESIUM 2.9 mg/dL (1.8-2.4); POTASSIUM 3.4 mmol/L (3.5-5.1); TOTAL BILIRUBIN 1.5 mg/dL (<0.1-1.0); TOTAL PROTEIN 5.7 g/dL (6.4-8.2)
[2020-05-15 08:00] VITALS: BP 138/66
--- NOTE | 2020-05-15 09:05 | EKG ---
[place] [address] ELECTROCARDIOGRAM REPORT Name: BETHEL WILLIAM Room: [address] ADM IN M.R.#: [id number] Admission: 05/05/20 Attend Phys: Memo Esposito, Discharge: Date of : 35 Date of Service: 05/14/20 2340 Report #: [id number] THIS REPORT FOR: //name// [facility] Test Date: 2020-05-14 Test Time: 23:40:09 Pat Name: BETHEL WILLIAM Department: Room: [address] Gender: M Sorting Machine Operator: ANNIA : 1935 Requested By: Memo Esposito Order Number: [id number] Reading MD: Jeremiah Mcbride Measurements Intervals [place] Rate: 130 P: [place]: QRS: -46 QRSD: 116 T: 197 QT: 314 QTc: 462 Interpretive Statements Atrial fibrillation Right bundle branch block LVH with IVCD and secondary repol abnrm ST depression, probably rate related Compared to ECG 05/07/2020 12:55:52 Intraventricular conduction delay now present Left ventricular hypertrophy now present Early repolarization now present ST (T wave) deviation now present Electronically Signed On 05-15-2020 9:05:26 POT FLUXER by Jeremiah Mcbride [email or web address] <ELECTRONICALLY SIGNED> By: Jeremiah Mcbride MD, [facility] 05/15/20904 39 39 Jeremiah Mcbride MD, [facility] /EPI
[2020-05-15 12:00] VITALS: BP 178/73
--- NOTE | 2020-05-15 13:28 | NUR ---
CM INFORMED DURING PRIME ROUNDING OF THE PLAN OF CARE FOR THE PT. PT CONTINUES TO NEED THE BIPAP. PT ON IV STEROIDS. CM WILL REMAIN AVAILABLE TO ASSIST AND FOLLOW FOR D/C PLANNING.
--- NOTE | 2020-05-15 15:59 | CON ---
[address] [address] CONSULTATION Name: BETHEL WILLIAM Room: [address] ADM IN M.R.#: [id number] Admission: 05/05/20 Attend Phys: Memo Esposito MD Discharge: Date of : 35 Report #: [id number] THIS REPORT FOR: cc: Fuad Hill MD, Srinath MD ~ Buzz Tuttle MD DATE OF SERVICE: 05/06/2020 CONSULT REQUESTED BY: Dr. Maier. INDICATION FOR CONSULTATION: Acute hypoxemic respiratory failure secondary to COVID-19. HISTORY OF PRESENT ILLNESS: This is an 85-year-old gentleman. He has a history of advanced dementia. The patient also has severe aortic stenosis. The patient had a normal left ventricular ejection fraction. There is no known history of smoking. He is a resident of a long term facility. The patient was initially admitted with COVID-19, was not requiring any supplemental oxygen at that time and he was discharged and then got readmitted. His baseline creatinine is 1.2. Since readmission, there has been a progressive increase in his oxygen needs. The patient has also become more tachypneic. He currently is on BiPAP with 50-60% FiO2. At the time of my evaluation, he was tachypneic with respiratory rate in the mid 30s. I am told that his respiratory rate in fact slows down at times, but he does not keep any other oxygen in place and therefore is continuously on BiPAP. The patient has had atrial fibrillation with RVR as well. He is currently maintaining blood pressure. His sodium is elevated. His glucoses are also elevated, but he currently is not on insulin. The patient is unable to provide a further history or review of systems. PAST MEDICAL HISTORY: Severe aortic stenosis with left ventricular ejection fraction is normal on the last echo with history of advanced dementia, type 2 diabetes, hypertension, hyperlipidemia. CURRENT MEDICATIONS: List in [employer] reviewed. HOME MEDICATIONS: List also in [employer] reviewed. SOCIAL HISTORY: Information regarding previous history of smoking, ethanol use or drug abuse unknown. FAMILY HISTORY: No pertinent family history is known at this time. ALLERGIES: [place] [address] CONSULTATION Name: BETHEL WILLIAM Room: [address] IN [facility]#: [id number] Admission: 05/05/20 Attend Phys: Memo Esposito MD Discharge: Date of : 35 Report #: [id number] PHYSICAL EXAMINATION: GENERAL: He is awake. He is confused. VITAL SIGNS: He is on BiPAP 14/8, 60% FiO2, respiratory rate was 33, but he was saturating high 90s, heart rate 96, blood pressure 131/58, temperature 37.4. HEENT: Head is normocephalic and atraumatic. BiPAP mask in place. Mucous membranes are dry. NECK: Does not show raised JVP, asymmetry, mass or lymph nodes. CHEST: Symmetrical expansion on inspection and palpation. On auscultation, breath sounds are bilaterally equal, but decreased. Expirations are prolonged. I do hear bilateral expiratory wheezes. HEART: Regular. There is no murmur. ABDOMEN: Soft and nontender. EXTREMITIES: Lower extremities show no edema, no calf tenderness. SKIN: Dry and intact. NEUROLOGICAL: Moves all extremities bilaterally equally and spontaneously with no focal deficit identified. LABORATORY AND DIAGNOSTIC DATA: The patient's chest x-rays were reviewed. These were consistent with interstitial infiltrates secondary to COVID-19. The patient's lab work showing acute renal failure as well as hypernatremia and potassium at the lower end of normal range at 3.6 in [facility] reviewed. Arterial blood gas showing a metabolic alkalosis with a component of respiratory acidosis in [employer] reviewed. ASSESSMENT AND PLAN: 1. Acute hypoxemic respiratory failure secondary to COVID-19. I switched the BiPAP over to AVAPS mode. If the patient's respiratory rate remains less than 30 and he is awake, he could be off the BiPAP. I understand he is not keeping any other oxygen in place. Recommend clarifying code status if he fails to improve and he may require endotracheal intubation. 2. COVID-19. The patient does appear to have a component of cytokine storm. He also is wheezing on my exam. Therefore, I will give him more steroids. I ordered 80 mg of Solu-Medrol now and then Decadron 6 mg IV q.8 hours. The Infectious Disease Service is also on the case. We will need to watch his creatinine as well as LFTs closely. If the patient's LFTs remained in the range currently, then I favor continuing with remdesivir. Obviously, this may need to be revisited in case LFTs are worsening. I also understand that remdesivir has not been studied in renal failure, so at this time potential benefit appears to be greater than the risks and therefore, I agree with continuing. 3. Pulmonary infiltrates. I agree with broad-spectrum antibiotics to cover for secondary bacterial infection, but primarily these appeared to be secondary to COVID-19. 4. Bronchospasm. Solu-Medrol and Decadron as above. [place] [address] CONSULTATION Name: BETHEL WILLIAM Room: [address] IN [facility].#: [id number] Admission: 05/05/20 Attend Phys: Memo Esposito MD Discharge: Date of : 35 Report #: [id number] start him on Xopenex. 5. Acute renal failure, baseline creatinine is 1.2 with hypernatremia. Hopefully, he could be stabilized enough from a respiratory point of view overnight, so that we can give him some fluids, possibly D5W with or without albumin tomorrow. This will need to be watched very closely. We will replace his potassium as well. We will be very cautious in using more Lasix as this could result in worsening renal failure. If essential, then I will consider giving it with albumin. 6. Severe aortic stenosis with normal left ventricular ejection fraction. See discussion above. 7. Atrial fibrillation with rapid ventricular response, heart rate is now returned to the normal range. Cardiology service on the case. 8. Advanced dementia. 9. Diabetes. Steroids will increase his glucoses. Also as above, I may give him D5W as well later, but so far he has not been on insulin, so I feel that there is room to give him more insulin. I started with a moderate dose insulin sliding scale. If glucoses remain elevated, add more insulin. 10. Deep venous thrombosis prophylaxis, the Lovenox will continue, will watch Lovenox dose closely in case his creatinine worsens. The patient is critically ill at this time. Total time spent providing critical care to this patient today is 41 minutes. <ELECTRONICALLY SIGNED> By: Buzz Tuttle MD 05/15/20 1559 [id number] Tuttle MD /nt
[2020-05-15 16:00] VITALS: BP 148/64
[2020-05-15 21:00] VITALS: BP 172/66
[2020-05-16 00:05] VITALS: BP 151/66
[2020-05-16 04:23] VITALS: BP 158/61
[2020-05-16 05:39] LABS: ABSOLUTE LYMPHOCYTES 0.6 thou/uL (0.8-5.3); ABSOLUTE MONOCYTES 1.2 thou/uL (0.0-1.2); ABSOLUTE NEUTROPHILS 19.7 thou/uL (1.6-8.1); BASOPHILS 0.1 %; HEMATOCRIT 38.9 % (42.0-52.0); HEMOGLOBIN 12.4 gm/dL (14.0-18.0); MCH 32.4 pg (26.0-34.0); MCHC 31.9 g/dL (28.0-37.0); MCV 101.3 fL (80.0-100.0); MONOCYTES 5.4 %; MPV 12.2 fl. (7.2-11.1); NUCLEATED RBCS 0 /100WBC; PLATELET COUNT* 193 thou/uL (150-400); POLYS 91.5 %; RBC 3.84 mil/uL (4.50-6.00); RDW-CV 16.4 % (10.5-14.5); WBC 21.5 thou/uL (4.0-11.0)
[2020-05-16 06:09] LABS: ALBUMIN 1.9 g/dL (3.4-5.0); CALCIUM 7.6 mg/dL (8.5-10.1); MAGNESIUM 2.9 mg/dL (1.8-2.4); TOTAL BILIRUBIN 1.3 mg/dL (<0.1-1.0); TOTAL PROTEIN 6.2 g/dL (6.4-8.2)
[2020-05-16 06:10] LABS: POTASSIUM 4.5 mmol/L (3.5-5.1)
--- NOTE | 2020-05-16 06:19 | NUR ---
Nonverbal and he keeps his eyes open most of the time. Vitals are stable, he's on heated high flow O2 in the daytime and bipap at night. He has a werner to DD and urine is chase colored. He has been turned every 2 hours and his buttocks is red and barrier cream applied. He has a triple lumen central line in his rt subclavian, the green port has no blood returm. He is not taking anything by mouth, mouthcare given every 2 hours. Unable to access is he has slept tonight, since his eyes have been open. He is afib on the monitor.
[2020-05-16 09:00] VITALS: BP 150/78
--- NOTE | 2020-05-16 13:05 | NUR ---
PT.ON BIPAP AT NIGHTS AND HFC THROUGH OUT THE DAY. O2 REQUIREMENTS NEED TO DECREASE BEFORE ANY SNF PLACEMENT CAN BE ARRANGED. HAS DISCUSSED WITH FAMILY.
[2020-05-16 13:08] VITALS: BP 176/89
[2020-05-16 16:51] VITALS: BP 158/79
[2020-05-16 20:00] VITALS: BP 182/86
[2020-05-17] VITALS (7 sets, daily range): BP systolic 124–165; BP diastolic 57–79
--- NOTE | 2020-05-17 02:14 | NUR ---
ASSUMED PT CARE AT APPROX. 1930. PT IS RESTING IN BED, AWAKE, NON-VERBAL BUT RESPONDS TO STIMULI. PT HAS HISTORY OF DEMENTIA AND CONFUSION. PT COMES FROM [facility] AT [facility]. VSS WITH ASYMPTOMATIC HTN. BP MEDICATIONS ADMINISTERED PER MD ORDER, AND CHARTED. PT IS AFIB ON TELE MONITOR. PTS CODE STATUS IS DNR. DURING THE DAY PT IS ON OXYGEN VIA HI-DOROTHY NC AT 45L. AT NIGHT PT USES BI-PAP ORDERED. PT REMAINS NPO PER SPEECH EVAL. R/T DIFFICULTY SWALLOWING. ORAL CARE PROVIDED USING SWAB STICKS. PT BITES DOWN ON ORAL SWAB. LIP OINTMENT PLACED TO DRY LIPS. PT HAS A RIGHT SUBCLAVIAN TRIPLE LUMEN WITH D5W INFUSING AT 75ML/HR ORDERED. ALL PORTS PATENT, WHEN FLUSHED WITH NS. NO S/SX OF INFECTION. DRESSING IS C/D/I. PT HAS A PATENT MIDLINE GRAYSON PICC. DRESSING IS C/D/I. PT HAS TRACE EDEMA ON BLLE, PEDAL PULSES PRESENT, BL CALF SCD'S ON. PT HAS BEEN REPOSITIONED Q2HRS. PT HAS A REA CATHETER, PATENT, YELLOW URINE IN COLLECTION BAG, SAFETY DEVICE IN PLACE ON INNER THIGH. PT HAS REDDNESS NOTED TO BUTTOCKS AND COCCYX. PERICARE PROVIDED. BARRIER CREAM APPLIED. PT HAS DMII, WITH ACCUCHECKS ORDERED Q6H. INSULIN MEDICATION ADMINISTERED PRESCRIBED. ORDERS AND LABS HAVE BEEN REVIEWED. FALL PRECAUTIONS IN PLACE. CALL LIGHT WITHIN REACH. HOURLY ROUNDING COMPLETED CHARTED. PT IS CURRENTLY RESTING IN BED WITH EYES CLOSED. WILL CONT. TO MONITOR.
[2020-05-17 06:32] LABS: ABSOLUTE BASOPHILS 0.1 thou/uL (0.0-0.2); ABSOLUTE LYMPHOCYTES 0.7 thou/uL (0.8-5.3); ABSOLUTE MONOCYTES 1.3 thou/uL (0.0-1.2); ABSOLUTE NEUTROPHILS 18.8 thou/uL (1.6-8.1); BASOPHILS 0.4 %; EOSINOPHILS 0.1 %; HEMATOCRIT 34.9 % (42.0-52.0); HEMOGLOBIN 11.2 gm/dL (14.0-18.0); LYMPHOCYTES 3.2 %; MCH 32.8 pg (26.0-34.0); MCV 102.5 fL (80.0-100.0); MONOCYTES 6.3 %; MPV 12.3 fl. (7.2-11.1); NUCLEATED RBCS 0 /100WBC; PLATELET COUNT* 174 thou/uL (150-400); RBC 3.41 mil/uL (4.50-6.00); RDW-CV 16.8 % (10.5-14.5)
[2020-05-17 06:46] LABS: CREATININE 1.9 mg/dL (0.6-1.3)
--- NOTE | 2020-05-17 16:42 | NUR ---
PT. NONVERBAL, Q2 TURNS, ORAL CARE PROVIDED MULTPLE TIMES DURING SHIFT, REA PATENT WITH ADEQUATE OUTPUT. CONTINUOUS IV FLUIDS. NO APPARENT PAIN OR DISCOMFORT NOTED. CALL LIGHT AND PERSONAL BELONGINGS PLACED WITHIN REACH.
[2020-05-18 00:24] VITALS: BP 164/68
[2020-05-18 04:03] VITALS: BP 152/70
--- NOTE | 2020-05-18 04:28 | NUR ---
ASSUMED PT'S CARE BEGINNING OF THIS PM SHIFT. PT REMAINS NONVERBAL PER REPORT. DRY MOUTH. ORAL CARE PERFORMED PERFORMED THIS SHIFT. PT'S O2 TITRATED TO 15L FROM 13L HFC SAT WAS RUNNING 88-89%. BIPAP @ HS. REA IN PLACE AND PATENT FOR VOIDING. Q2 TURN. FALL PRECAUTIONS IN PLACE. CALL LIGHT WITHIN REACH. WILL CONTINUE TO MONITOR.
[2020-05-18 08:58] VITALS: BP 147/81
[2020-05-18 12:03] LABS: HEMATOCRIT 32.5 % (42.0-52.0); HEMOGLOBIN 10.4 gm/dL (14.0-18.0); MCH 32.6 pg (26.0-34.0); MCHC 32.1 g/dL (28.0-37.0); MCV 101.7 fL (80.0-100.0); MPV 12.2 fl. (7.2-11.1); RBC 3.19 mil/uL (4.50-6.00); RDW-CV 15.9 % (10.5-14.5); WBC 22.9 thou/uL (4.0-11.0)
[2020-05-18 12:11] LABS: CALCIUM 8.1 mg/dL (8.5-10.1); CREATININE 1.5 mg/dL (0.6-1.3); POTASSIUM 4.2 mmol/L (3.5-5.1)
[2020-05-18 12:40] VITALS: BP 144/61
[2020-05-18 17:27] VITALS: BP 124/68
--- NOTE | 2020-05-18 18:40 | NUR ---
PT TRACKING WITH EYES TODAY GRUNTING AND CAN TELL HE WANTS TO SAY SOMETHING SQUEEZES HAND MILDLY BUT DOESN'T FOLLOW ANYMORE COMMANDS MOVED TO 101 OFF ISOLATION WAITING FOR FAMILY TO VISIT
[2020-05-18 20:00] VITALS: BP 135/81
[2020-05-19 01:21] VITALS: BP 145/66
[2020-05-19 05:04] VITALS: BP 115/79
--- NOTE | 2020-05-19 05:12 | NUR ---
PT REMAINED CALM THIS SHIFT. IV MEDS GIVEN PER EMAR. STILL NPO. Q2 TURN THIS SHIFT. FEW TIMES, PT WAS ABLE TO FOLLOW MY VOICE AND LOOK AT ME. ORAL CARE GIVEN THIS SHIFT. REA REMAINS IN PLACE FOR VOIDING. PT TO TRANSFER TO TELE TODAY. FALL PRECAUTION REMAINS IN PLACE. WILL CONTINUE TO MONITOR.
[2020-05-19 05:27] LABS: HEMATOCRIT 29.7 % (42.0-52.0); HEMOGLOBIN 9.5 gm/dL (14.0-18.0); MCH 32.7 pg (26.0-34.0); MCHC 32.1 g/dL (28.0-37.0); MCV 101.8 fL (80.0-100.0); RBC 2.91 mil/uL (4.50-6.00); RDW-CV 15.9 % (10.5-14.5); WBC 22.9 thou/uL (4.0-11.0)
[2020-05-19 05:39] LABS: ALBUMIN 1.7 g/dL (3.4-5.0); CALCIUM 7.9 mg/dL (8.5-10.1); CREATININE 1.5 mg/dL (0.6-1.3); MAGNESIUM 3.1 mg/dL (1.8-2.4); POTASSIUM 4.3 mmol/L (3.5-5.1); TOTAL BILIRUBIN 0.9 mg/dL (<0.1-1.0); TOTAL PROTEIN 4.9 g/dL (6.4-8.2)
[2020-05-19 08:00] VITALS: BP 146/74
--- NOTE | 2020-05-19 10:51 | NUR ---
WOUND NURSE: PATIENT SEEN TO ADDRESS A SKIN LESION ON BUTTOCKS WITH PARTIAL THICKNESS TISSUE LOSS AND MEASURING 1.5 X 2.5 X 0.1 CM. PRESENTS WITH PINK, NONGRANULATING TISSUE IN THE WOUND BED. THERE IS A SCANT AMOUNT OF SEROUSANGUINOUS DRAIANGE NOTED. PATIENT IS NOT VERBAL AT TIME OF THIS ASSESSMENT AND TOTALLY DEPENDENT WITH REPOSITIONING. UNABLE TO TEACH PATIENT A RESULT. WILL RECOMMEND LOW AIRLOSS MATTRESS FOR PATIENT.
[2020-05-19 12:00] VITALS: BP 134/48
--- NOTE | 2020-05-19 13:08 | NUR ---
MOVED TO TELEMETRY UNIT TODAY. OFF ISOLATION/OFF COVID UNIT. ON 10L/HFC. IS NPO. SPEECH THERAPY TO SEE TODAY.
[2020-05-19 16:00] VITALS: BP 118/60
--- NOTE | 2020-05-19 18:18 | NUR ---
ASSUMED PT CARE AT 0730, PT NONVERBAL BUT NO INDICATIONS OF PAIN. ORAL CARE BEING DONE Q4H, PT BEING TURNED Q2H, PT WORKED W/ ST TODAY AND CONTINUES NPO STATUS. PT WORKED W/ WOUND CARE TODAY AND DRESSING CHANGED ON SACRUM. GOAL IS TO REMAIN FREE FROM FURTHER SKIN BREAKDOWN AND KEEP SATS ABOVE 90%. MEDS PER JUN, HOURLY ROUNDING OBSERVED, FALL PRECAUTIONS IN PLACE, CALL LIGHT W/IN REACH.
[2020-05-19 20:00] VITALS: BP 112/53
--- NOTE | 2020-05-19 20:00 | NUR ---
RECEIVED REPORT AND ASSUMED CARE OF PT, ASSESSMENT COMPLETED. PT NON-VERBAL, EYES OPEN AND DOES FOLLOW MOVEMENT. WILL NOT FOLLOW SIMPLE COMMANDS. O2 ON AT 10/HFC. REPOSITIONED IN BED, INCONT OF BLACK TARRY STOOL. TELEMETRY ON SHOWING A-FIB. WILL CONT TO MONITOR AND ASSIST NEEDED.
[2020-05-20] VITALS: BP 140/67
--- NOTE | 2020-05-20 03:31 | NUR ---
AROUND 0102 HRS:PT IS IN RM 203 REG ROOM; HOLD BIPAP IF IN NON-NEG PRESSURE ROOM PER MD ORDERS.
[2020-05-20 04:00] VITALS: BP 104/50
[2020-05-20 05:02] LABS: HEMATOCRIT 24.7 % (42.0-52.0); HEMOGLOBIN 7.9 gm/dL (14.0-18.0); MCH 32.8 pg (26.0-34.0); MCV 102.7 fL (80.0-100.0); MPV 11.9 fl. (7.2-11.1); NUCLEATED RBCS 0 /100WBC; PLATELET COUNT* 177 thou/uL (150-400); RBC 2.41 mil/uL (4.50-6.00); RDW-CV 16.2 % (10.5-14.5); WBC 20.2 thou/uL (4.0-11.0)
[2020-05-20 05:44] LABS: ALBUMIN 2.2 g/dL (3.4-5.0); CALCIUM 7.9 mg/dL (8.5-10.1); CREATININE 1.5 mg/dL (0.6-1.3); MAGNESIUM 3.1 mg/dL (1.8-2.4); POTASSIUM 4.2 mmol/L (3.5-5.1); TOTAL BILIRUBIN 0.9 mg/dL (<0.1-1.0); TOTAL PROTEIN 4.8 g/dL (6.4-8.2)
--- NOTE | 2020-05-20 06:52 | NUR ---
SLEPT WELL TONIGHT. PT CONT TO BE NON-VERBAL OR MOBILE. DOES OCC REACH UP AND REMOVE O2 PER HFC. NO CHANGE IN ASSESSMENT. PT REPOSITIONED Q 2HR. TELEMETRY CONT TO SHOW A-FIB. HOURLY ROUNDING OBSERVED. HS GOALS OF REST AND SAFETY ACHIEVED.
[2020-05-20 07:06] LABS: ABSOLUTE LYMPHOCYTES 0.6 thou/uL (0.8-5.3); ABSOLUTE MONOCYTES 1.6 thou/uL (0.0-1.2); PLATELET ESTIMATE ADEQUATE
[2020-05-20 07:07] LABS: ANISOCYTOSIS 1+; POIKILOCYTOSIS 1+
[2020-05-20 08:00] VITALS: BP 130/58
[2020-05-20 08:11] LABS: HEMATOCRIT 23.9 % (42.0-52.0); HEMOGLOBIN 7.6 gm/dL (14.0-18.0); MCH 32.5 pg (26.0-34.0); MCHC 31.7 g/dL (28.0-37.0); MCV 102.5 fL (80.0-100.0); MPV 11.1 fl. (7.2-11.1); RBC 2.33 mil/uL (4.50-6.00); RDW-CV 15.9 % (10.5-14.5); WBC 22.1 thou/uL (4.0-11.0)
--- NOTE | 2020-05-20 11:52 | NUR ---
Dr feliz speak with niece/DPOA about making Pt comfort care today, Pt continues to decline. Med surg status
[2020-05-20 12:00] VITALS: BP 136/62
[2020-05-20 20:00] VITALS: BP 145/66
--- NOTE | 2020-05-20 20:17 | NUR ---
ASSUMED PT CARE AT 0730, PT NONVERBAL, BEING TURNED Q2H, GOT SWITCHED OVER TO LOW AIRLOSS MATTRESS TODAY AND BED BATH GIVEN. ORAL CARE BEING DONE Q4H, PT STILL NPO FOR FAILED SWALLOW STUDY. GOAL IS TO REMAIN FREE FROM ASPIRATION AND SKIN BREAKDOWN. MEDS PER MAR, HOURLY ROUNDING OBSERVED, FALL PRECAUTIONS IN PLACE, CALL LIGHT W/IN REACH
[2020-05-21] VITALS: BP 136/57
[2020-05-21 03:59] LABS: RBC 2.04 mil/uL (4.50-6.00)
[2020-05-21 04:02] LABS: HEMATOCRIT 21.4 % (42.0-52.0); MCH 32.9 pg (26.0-34.0); MCHC 31.4 g/dL (28.0-37.0); MCV 104.9 fL (80.0-100.0); MPV 11.7 fl. (7.2-11.1); RDW-CV 16.6 % (10.5-14.5); WBC 19.7 thou/uL (4.0-11.0)
[2020-05-21 04:07] LABS: HEMOGLOBIN 6.7 gm/dL (14.0-18.0)
[2020-05-21 04:22] LABS: ALBUMIN 1.8 g/dL (3.4-5.0); CALCIUM 7.6 mg/dL (8.5-10.1); CREATININE 1.6 mg/dL (0.6-1.3); POTASSIUM 4.2 mmol/L (3.5-5.1); TOTAL BILIRUBIN 0.6 mg/dL (<0.1-1.0); TOTAL PROTEIN 4.4 g/dL (6.4-8.2)
--- NOTE | 2020-05-21 05:40 | NUR ---
ASSUMED PT CARE AT APPROX 1930. PT OPENS EYES WHEN NAME IS CALLED, NON VERBAL, MOANS AT TIMES, PT IS ABLE TO LOCALIZE PAIN. PT IS ON 10L OF O2/HFNC, spO2 IN THE UPPER 90's. PT IS REPOSITIONED Q2H. CRITICAL Hgb OF 6.7 THIS AM, DR MOSER NOTIFIED,INFORMED OF PLANS FOR COMFORT CARE/HOSPICE, ORDER TO TRANSFUSE BLOOD ON HOLD UNTIL ATTENDING PHYSICIAN IS AVAILABLE TO DECIDE WHETHER TO TRANSFUSE OR NOT. WILL CONTINUE TO MONITOR PT CLOSELY.
[2020-05-21 08:15] VITALS: BP 133/61
[2020-05-21 12:00] VITALS: BP 135/67
--- NOTE | 2020-05-21 13:19 | NUR ---
Med surg status. Anticipate comfort care once son has a chance to visit either today or tomorrow. Possible hospice house transfer. Possible dc tomorrow.
[2020-05-21 16:00] VITALS: BP 127/68
--- NOTE | 2020-05-21 18:28 | NUR ---
ASSUMED PT CARE AT 0730. PT MAKES EYE CONTACT AND FOLLOWS THIS NURSE WHEN HE HEARS HIS NAME. PT SMILED AT NURSE TODAY AND RESPONDED WITH A NOD WHEN ASKED IF HE WAS HOT. SAFETY MEASURES IN PLACE. PT TURNED AND REPOSITIONED FOR COMFORT Q2H. RT DECREASED O2 O2 SATS WERE UPPER 90'S TO 100. PT NOW ON 5L HFNC AND MAINTAINING O2 SATS IN UPPER 90'S. ORAL CARE PROVIDED Q HR. NO SIGN OF PAIN AND/OR DISCOMFORT NOTED. DRESSING TO SACRAL AREA IS DRY AND INTACT.
[2020-05-21 20:00] VITALS: BP 127/63
[2020-05-22 00:56] VITALS: BP 125/40
--- NOTE | 2020-05-22 04:37 | NUR ---
ASSUMED PT CARE AT APPROX 1930. GCS IS 11 (E4 V2 M5). NO DESATURATIONS NOTED ON 6L OF O2/HFC. ORAL CARE PERFORMED RELIGIOUSLY PT's ORAL MUCOSA IS VERY DRY SINCE PT HAS BEEN BREATHING THROUGH HIS MOUTH. NO ACUTE CHANGES THIS SHIFT. WILL CONTINUE TO MONITOR PT CLOSELY.
[2020-05-22 08:00] VITALS: BP 119/58
--- NOTE | 2020-05-22 14:56 | NUR ---
CM spoke with niece, son will not be coming to visit. Pt was made comfort care today. M/s status
[2020-05-22 16:00] VITALS: BP 138/62
--- NOTE | 2020-05-22 20:03 | NUR ---
ASSUMED PT CARE AT 0730. PT IS ALERT TO NAME AT TIMES. PATIENT TURNED AND REPO EVERY 2 HOURS FOR COMFORT. MOISTURE BARRIER APPLIED AFTER EACH EPISODE OF INCONTINENCE. PT ON COMFORT MEASURES. SAFETY MEASURES IN PLACE. ORAL CARE PROVIDED Q1HR. ASSESSMENT COMPLETED. CONTINUE CURRENT PLAN TO PROMOTE ORDERS FOR COMFORT CARE. DRESSING INTACT TO SACRAL WOUND. PT REMAINS ON 5L OF O2 PER NC AND MAINTAINING SATS IN THE UPPER 90'S. NO SIGNS OF PAIN AND/OR DISCOMFORT NOTED.
--- NOTE | 2020-05-22 22:00 | NUR ---
RECEIVED REPORT AND ASSUMED CARE OF PT AT 1930. ASSESSMENT COMPLETED AT THIS TIME. PT NON VERBAL, MOUTH CARE GIVEN AND PT RESPONSES TO THIS BY MOVING HEAD SOME AND CLOSING MOUTH SOME. LT ARM WEEPING SEROUS FLUID. O2 DECREASED TO 2L/NC. PT ON COMFORT CARE.
--- NOTE | 2020-05-23 07:00 | NUR ---
PT NOTED TO BE IN AGNAL BREATHING WITH LAST BREATH TAKEN AT 0645. NO APICAL PULSE X1 MIN OR BP. PRONOUNCED AT 0645. REA AND SUBCLAVIN REMOVED. NUVIA-LAILA NOTIFIED AND INFORMED OR [facility] WOULD BE USED. [facility] NOTIFIED AND DECLINED DONATION.
--- NOTE | 2020-05-26 10:27 | CON ---
[address] [address] CONSULTATION Name: BETHEL WILLIAM Room: [address] IN M.R.#: [id number] Admission: 05/05/20 Attend Phys: Memo Esposito MD Discharge: 05/23/20 Date of : 35 Report #: [id number] THIS REPORT FOR: cc: Fuad Hill MD, Srinath MD ~ Irvin Villagran MD DATE OF SERVICE: 05/08/2020 REQUESTING PHYSICIAN: Dr. Maier. REASON FOR CONSULTATION: Hypernatremia. HISTORY OF PRESENT ILLNESS: The patient is an 85-year-old gentleman with medical history significant for advanced dementia, presents with some shortness of breath. He was recently diagnosed with COVID pneumonia, on oxygen. His serum sodium was elevated and I was consulted. He also has acute kidney injury and UTI. SOCIAL HISTORY: A care home resident. FAMILY HISTORY: Noncontributory. REVIEW OF SYSTEMS: Unobtainable. PHYSICAL EXAMINATION: No distress, on bypass, coarse breath sounds. No edema. ASSESSMENT: 1. Hypernatremia due to free water deficit. 2. Acute kidney injury. 3. Dementia. 4. COVID-19 pneumonia. PLAN: 1. His serum sodium is 157, down from 160 earlier. We will continue with D5W at 100. 2. Potassium is low at 2.9, replace per protocol. 3. Creatinine is better at 1.8, down from 2.3. So, we will continue with fluids, potassium replacement, and follow labs. He is not a dialysis candidate. Discussed with Dr. Maier and Dr. Tuttle. <ELECTRONICALLY SIGNED> By: Irvin Villagran MD 05/26/20 1027 [id number] Villagran MD /PMT
== END 2020-05-23 06:45 | DRG 871 ==
LOC: M.ERS 21:45 → M.TBA-ER 05-05 01:32 → M.ORTHSURG 05-05 01:32 → M.ICU 05-09 15:39 → M.ORTHSURG 05-14 16:11 → M.2W 05-19 09:05
PROVIDERS: Internal Medicine; Internal Medicine Critical Care Medicine; Internal Medicine Nephrology; Personal Emergency Response Attendant; Registered Nurse; ADMIT Internal Medicine; ATTEND Internal Medicine
PROC: XW033E5 Introduction of Remdesivir Anti-infective into Peripheral Vein, Percutaneous Approach, New Technology Group 5 (ICD-10-PCS; principal; 2020-05-05)
PROC: 5A09457 Assistance with Respiratory Ventilation, 24-96 Consecutive Hours, Continuous Positive Airway Pressure (ICD-10-PCS; principal; 2020-05-05)
PROC: 02HV33Z Insertion of Infusion Device into Superior Vena Cava, Percutaneous Approach (ICD-10-PCS; 2020-05-08)
PROC: XW13325 Transfusion of Convalescent Plasma (Nonautologous) into Peripheral Vein, Percutaneous Approach, New Technology Group 5 (ICD-10-PCS; 2020-05-08)
PROC: 5A09357 Assistance with Respiratory Ventilation, Less than 24 Consecutive Hours, Continuous Positive Airway Pressure (ICD-10-PCS; 2020-05-08)
PROC: 5A09357 Assistance with Respiratory Ventilation, Less than 24 Consecutive Hours, Continuous Positive Airway Pressure (ICD-10-PCS; 2020-05-09)
PROC: 5A09357 Assistance with Respiratory Ventilation, Less than 24 Consecutive Hours, Continuous Positive Airway Pressure (ICD-10-PCS; 2020-05-10)
PROC: 02HV33Z Insertion of Infusion Device into Superior Vena Cava, Percutaneous Approach (ICD-10-PCS; 2020-05-10)
PROC: 5A09357 Assistance with Respiratory Ventilation, Less than 24 Consecutive Hours, Continuous Positive Airway Pressure (ICD-10-PCS; 2020-05-11)
PROC: 5A0935A Assistance with Respiratory Ventilation, Less than 24 Consecutive Hours, High Flow/Velocity Cannula (ICD-10-PCS; 2020-05-11)
PROC: 5A0935A Assistance with Respiratory Ventilation, Less than 24 Consecutive Hours, High Flow/Velocity Cannula (ICD-10-PCS; 2020-05-12)
PROC: 5A09357 Assistance with Respiratory Ventilation, Less than 24 Consecutive Hours, Continuous Positive Airway Pressure (ICD-10-PCS; 2020-05-12)
PROC: 5A09357 Assistance with Respiratory Ventilation, Less than 24 Consecutive Hours, Continuous Positive Airway Pressure (ICD-10-PCS; 2020-05-13)
PROC: 5A0935A Assistance with Respiratory Ventilation, Less than 24 Consecutive Hours, High Flow/Velocity Cannula (ICD-10-PCS; 2020-05-13)
PROC: 5A09357 Assistance with Respiratory Ventilation, Less than 24 Consecutive Hours, Continuous Positive Airway Pressure (ICD-10-PCS; 2020-05-14)
PROC: 5A0935A Assistance with Respiratory Ventilation, Less than 24 Consecutive Hours, High Flow/Velocity Cannula (ICD-10-PCS; 2020-05-15)
PROC: 5A09357 Assistance with Respiratory Ventilation, Less than 24 Consecutive Hours, Continuous Positive Airway Pressure (ICD-10-PCS; 2020-05-15)
PROC: 5A0935A Assistance with Respiratory Ventilation, Less than 24 Consecutive Hours, High Flow/Velocity Cannula (ICD-10-PCS; 2020-05-16)
PROC: 5A09357 Assistance with Respiratory Ventilation, Less than 24 Consecutive Hours, Continuous Positive Airway Pressure (ICD-10-PCS; 2020-05-16)
PROC: 5A09357 Assistance with Respiratory Ventilation, Less than 24 Consecutive Hours, Continuous Positive Airway Pressure (ICD-10-PCS; 2020-05-17)
PROC: 5A0935A Assistance with Respiratory Ventilation, Less than 24 Consecutive Hours, High Flow/Velocity Cannula (ICD-10-PCS; 2020-05-17)
PROC: 5A0935A Assistance with Respiratory Ventilation, Less than 24 Consecutive Hours, High Flow/Velocity Cannula (ICD-10-PCS; 2020-05-18)
PROC: 5A0945A Assistance with Respiratory Ventilation, 24-96 Consecutive Hours, High Flow/Velocity Cannula (ICD-10-PCS; 2020-05-18)
PROC: 5A0935A Assistance with Respiratory Ventilation, Less than 24 Consecutive Hours, High Flow/Velocity Cannula (ICD-10-PCS; 2020-05-22)
DX: A41.89 Other specified sepsis (principal); U07.1 COVID-19; J96.01 Acute respiratory failure with hypoxia; J12.82 Pneumonia due to coronavirus disease 2019; G92 Toxic encephalopathy; N17.0 Acute kidney failure with tubular necrosis; N39.0 Urinary tract infection, site not specified; E87.0 Hyperosmolality and hypernatremia; I50.32 Chronic diastolic (congestive) heart failure; I48.19 Other persistent atrial fibrillation; I13.0 Hypertensive heart and chronic kidney disease with heart failure and stage 1 through stage 4 chronic kidney disease, or unspecified chronic kidney disease; F03.90 Unspecified dementia, unspecified severity, without behavioral disturbance, psychotic disturbance, mood disturbance, and anxiety; E78.5 Hyperlipidemia, unspecified; R31.9 Hematuria, unspecified; I35.0 Nonrheumatic aortic (valve) stenosis; I48.0 Paroxysmal atrial fibrillation; E11.22 Type 2 diabetes mellitus with diabetic chronic kidney disease; N18.30 Chronic kidney disease, stage 3 unspecified; E86.9 Volume depletion, unspecified; Z51.5 Encounter for palliative care; Z79.82 Long term (current) use of aspirin; Z79.899 Other long term (current) drug therapy